=== PATIENT | female | born 1965 | race Caucasian/White ===

== ENCOUNTER 2023-09-28 22:10 | Inpatient (IN) | payer MEDICARE, SELFPAY ==
[2023-09-28 22:15] VITALS: BP 144/103; PULSE 101; RESP 18; TEMP 36.8; O2SAT 96; BMI 35.9
--- NOTE | 2023-09-28 22:18 | PC.NURSE ---
patient arrived to floor via [facility] transfer @22:14
--- NOTE | 2023-09-28 22:36 | ECG_ITS ---
APPROVED REPORT Exam: Resting ECG HR:101 bpm ECG Measurements Heart Rate 101 AXES UT 123 P 34 QRSd 99 QRS 53 QT 362 T 30 QTc 420 Conclusion SINUS TACHYCARDIA MODERATE ST DEPRESSION [0.05+ mV ST DEPRESSION] ABNORMAL ECG UNCONFIRMED REPORT Electronically signed by : Len Garza MD 09/30/2023 08:47:56
[2023-09-28 22:40] VITALS: PULSE 120
--- NOTE | 2023-09-28 22:40 | XR_ITS ---
PROCEDURE INFORMATION: Exam: XR Chest Exam date and time: 09/28/2023 10:51 PM Age: 58 years old Clinical indication: Shortness of breath TECHNIQUE: Imaging protocol: Radiologic exam of the chest. Views: 1 view. COMPARISON: No relevant prior studies available. FINDINGS: Lungs: Small calcified nodule in the left lung base compatible with granuloma. Lung lovelace otherwise clear. Pleural spaces: Unremarkable. No pleural effusion. No pneumothorax. Heart/Mediastinum: Heart size within normal limits allowing for low lung volume portable technique. Bones/joints: Unremarkable. IMPRESSION: No acute disease.
--- NOTE | 2023-09-28 23:01 | P.HP_ITS ---
History of Present Illness *Admission Date: 09/28/23 *Reason for visit:: NSTEMI *History of present illness: This is a 58-year-old female with a past medical history of alcoholism and prior CVA, medically noncompliant who presents as a transfer from [facility] for further evaluation of NSTEMI. Patient reports several months worth of generalized weakness and states that it has caused her to be unable to walk. States this is not mechanical but states that when she gets up to walk she feels generally weak and falls to the floor. Does have a history of robust alcoholism which she adamantly admits to. States that she is not willing to get help and that she will not quit drinking. Had a recent history of CVA in January for which she has mild deficits from. States that she has not seen a doctor in some time, has not followed up after her stroke. Does not take any medications and states that the medication she was given after her CVA she did not take. She presented department today with complaints of generalized weakness and anxiety denies chest pain, shortness of breath. She does endorse a prior history of CHF exacerbation at [place] in 2018 but also has not followed up for this. Emergency department workup at the outside hospital notable for troponin of [address] depression in lead I, II and III. Mildly elevated AST and ALT. Dr. Hodges was consulted prior to arrival and agrees with admission here. She currently is chest pain-free. States that she has never had any chest pain and has not been overtly short of breath either. During conversation with her she is more concerned with her extreme anxiety than her cardiac workup. Have now been told by 4 different family members that patient is alcoholic and needs something for her nerves. [facility] Disclaimer: The information contained in this section may have been updated after the patient was seen, as this information can be updated by other users. Medical History (Updated 09/29/23 @ 11:22 by Ana Olivera APRN) (HFpEF) heart failure with preserved ejection fraction NSTEMI (non-ST elevated myocardial infarction) Generalized weakness Alcoholism History of CVA (cerebrovascular accident) Transaminitis Obesity Medical non-compliance Sinus tachycardia Iron deficiency COPD (chronic obstructive pulmonary disease) CVA (cerebral vascular accident) Congestive heart failure (CHF) Surgical History (Updated 09/29/23 @ 11:22 by Ana Olivera APRN) History of gastric bypass Gastric bypass status for obesity Family History (Updated 09/28/23 @ 22:45 by Leticia Cano, RN) Other Family history of cancer Family history of heart disease Family history of stroke Social History (Updated 09/28/23 @ 22:45 by Leticia Cano, RN) Smoking Status: Current every day smoker alcohol intake: current current occupational status: other Travel in the last 8 weeks: None Review of Systems Review of Systems Review of systems (narrative): Review of systems negative except for HPI Meds Home Medications and Allergies Home Medications ?Medication ?Instructions ?Recorded ?Confirmed ?Type No Known Home Medications 09/29/23 09/29/23 History New Prescriptions to Start Prescriptions: Allergies Allergy/AdvReac Type Severity Reaction Status Date / Time No Known Allergies Allergy Verified 09/28/23 22:25 Exam Data for Last 24 hours Vital signs and Labs for Last 24 Hours: Temp Pulse Resp BP Pulse Ox O2 Del Method 98.3 F 101 H 18 144/103 H 96 Room Air 09/28/23 22:15 09/28/23 22:15 09/28/23 22:15 09/28/23 22:15 09/28/23 22:15 09/28/23 22:15 I & O for Last 24 hours: Intake & Output 09/25/23 09/26/23 09/27/23 09/28/23 23:59 23:59 23:59 23:59 Weight 97.885 kg Constitutional Constitutional: no acute distress *Routine HEENT Exam Head: Present normocephalic Eye: Present EOMI and PERRL ENT: Present mucous membranes moist *Routine Neck Exam Neck: Present supple; Absent lymphadenopathy *Routine Respiratory Exam Respiratory: Present CTA bilaterally *Routine Cardiovascular Exam Cardiovascular: Present RRR *Routine Abdominal Exam Abdominal: Present soft and normoactive bowel sounds; Absent tenderness *Routine Rectal Exam Rectal:: deferred *Routine Genitalia Exam Genitalia:: deferred *Routine Extremities Exam Extremities: Absent cyanosis, clubbing or edema *Routine Skin Exam Skin: Present warm; Absent rash *Routine Neurological Exam Neurological: Present alert and oriented X3 Assessment and Plan *Assessment and plan (1) NSTEMI (non-ST elevated myocardial infarction): Status: Acute Category: Medical Code(s): I21.4 - Non-ST elevation (NSTEMI) myocardial infarction (2) Generalized weakness: Status: Acute Category: Medical Code(s): R53.1 - Weakness (3) Alcoholism: Status: Acute Category: Medical Code(s): F10.20 - Alcohol dependence, uncomplicated (4) History of CVA (cerebrovascular accident): Status: Acute Category: Medical Code(s): Z86.73 - Personal history of transient ischemic attack (TIA), and cerebral infarction without residual deficits (5) Transaminitis: Status: Acute Category: Medical Code(s): R74.01 - Elevation of levels of liver transaminase levels (6) Obesity: Status: Acute Qualifiers: Obesity classification: adult class 3 (BMI >= 40) Category: Medical Code(s): E66.9 - Obesity, unspecified (7) Medical non-compliance: Status: Acute Category: Medical Code(s): Z91.199 - Patient's noncompliance with other medical treatment and regimen due to unspecified reason Plan #NSTEMI Cardiology consulted, christiano Hodges recommendations initial high-sensitivity troponin outside hospital 288 EKG with T wave inversions in lead I to III Trend tropinins Nitro for chest pain EKG for worsenign or new chest pain Continue ASA daily Initiate statin #Medical noncompliance Reports that she does not take any medicines because she refused to take them after her stroke. Does not have any close follow-up, states that she does not have a PCP #Alcoholism #Transaminitis Reports 6-8 beers daily for the last 40 years as well as some whiskey intake intermittently Will schedule Serax and gabapentin to attempt to avoid withdrawal CIWA protocol with multivitamins and Ativan #History of CVA No residual deficits at this time except for mild speech impediment #Generalized weakness Has good strength bilaterally with plantar and dorsi flexion and hip flexion Reports that she can walk but is too weak to walk very far Lumbar CT performed at outside hospital,signs of cauda equina Obtain urinalysis to rule out infection as source of generalized weakness #Obesity Complicates all aspects of care
[2023-09-28] MEDS: OXAZEPAM 10 MG CAPSULE PO (23:41)
[2023-09-28] MEDS: 0.9 % SODIUM CHLORIDE 1000ML 1,000 ML 50 ML IV (23:52)
[2023-09-29] VITALS (8 sets, daily range): BP systolic 107–124; BP diastolic 56–76; PULSE 77–119; RESP 17–20; TEMP 36.4–37.7; O2SAT 95–100; BMI 35.9
[2023-09-29 00:02] LABS: Basophils % 0.6 % (0.1-2.0); Eosinophils % 0.2 % (0.1-12.0); Hematocrit 31.9 % (37.0-47.0); Hemoglobin 9.7 g/dL (12.2-16.2); Lymphocytes # 1.2 K/mm3 (0.7-4.5); Lymphocytes % 19.2 % (10-50); Mean Corpuscular HGB Conc 30.4 g/dL (31.8-35.4); Monocytes # 0.4 K/mm3 (0.1-1.0); Monocytes % 5.7 % (1.7-9.3); Neutrophils # 4.8 K/mm3 (1.8-7.8); Neutrophils % 74.3 % (37.0-80.0); Platelet Count 137 K/mm3 (142-424); Red Blood Count 3.59 M/mm3 (4.20-5.40); White Blood Count 6.5 K/mm3 (4.8-10.8)
[2023-09-29 00:15] LABS: Alanine Aminotransferase 92 U/L (12-78); Albumin Level 3.8 g/dl (3.5-5.0); Albumin/Globulin Ratio 1.3 (1.1-1.8); Alkaline Phosphatase 89 U/L (38-126); Anion Gap 19.2 mEq/L (5-15); Aspartate Amino Transferase 201 U/L (14-36); Bilirubin,Total 0.8 mg/dl (0.2-1.3); Blood Urea Nitrogen 5 mg/dl (7-17); Calcium 8.7 mg/dl (8.4-10.2); Carbon Dioxide 15 mmol/L (22.0-30.0); Chloride 101 mmol/L (98-107); Creatinine Clearance Estimated 185 mL/min (50-200); Estimated Glomerular Filt Rate 126 ml/min (>60); GFR (African American) 152 ML/MIN (>60); Glucose 145 mg/dl (74-100); Potassium 4.2 mmoL/L (3.5-5.1); Sodium 131 mmol/L (136-145); Total Protein,Serum 6.8 g/dl (6.3-8.2)
[2023-09-29 00:17] LABS: Activated Partial Thrombo Time 26.3 seconds (22.8-30.6); Cholesterol 200 mg/dl (140-200); INR 0.91 (0.9-1.1); Magnesium 1.6 mg/dl (1.6-2.3); Prothrombin Time 10.3 seconds (10.1-12.5); Triglycerides 75 mg/dl (30-150); VLDL Cholesterol 15 mg/dL (0-40)
[2023-09-29 00:24] LABS: NT Pro Brain Natriuretic Pep. 663 pg/mL (0-125)
[2023-09-29 00:27] LABS: Direct LDL Cholesterol 44.33 mg/dL (100-129)
[2023-09-29 00:29] LABS: Chol/HDL Ratio 1.6 (1-3.5); HDL Cholesterol 127 mg/dl (40-60)
[2023-09-29] MEDS: LORazepam 1MG TABLET 1 MG PO ×3 (01:36→18:23)
[2023-09-29 01:51] LABS: Hemoglobin A1C 4.3 % (4.0-6.0)
[2023-09-29 02:11] LABS: Troponin I 0.04 ng/ml (0.00-0.034)
[2023-09-29 05:52] LABS: Basophils % 0.6 % (0.1-2.0); Eosinophils % 0.6 % (0.1-12.0); Hematocrit 28.1 % (37.0-47.0); Lymphocytes # 1.5 K/mm3 (0.7-4.5); Mean Corpuscular HGB Conc 30.9 g/dL (31.8-35.4); Mean Corpuscular Hemoglobin 27.5 pg (27.0-31.2); Mean Platelet Volume 8.5 fl (7.4-10.4); Monocytes # 0.3 K/mm3 (0.1-1.0); Monocytes % 7.1 % (1.7-9.3); Neutrophils # 2.3 K/mm3 (1.8-7.8); Neutrophils % 55.7 % (37.0-80.0); Platelet Count 126 K/mm3 (142-424); Red Blood Count 3.16 M/mm3 (4.20-5.40); Red Cell Distribution Width 24.5 % (11.5-17.5); White Blood Count 4.2 K/mm3 (4.8-10.8)
[2023-09-29 05:57] LABS: Chloride 103 mmol/L (98-107); Potassium 4.2 mmoL/L (3.5-5.1); Sodium 131 mmol/L (136-145)
[2023-09-29 05:58] LABS: Hemoglobin 8.7 g/dL (12.2-16.2)
[2023-09-29 06:00] LABS: Anion Gap 11.2 mEq/L (5-15); Blood Urea Nitrogen 8 mg/dl (7-17); Calcium 8.1 mg/dl (8.4-10.2); Carbon Dioxide 21 mmol/L (22.0-30.0); Creatinine Clearance Estimated 185 mL/min (50-200); Estimated Glomerular Filt Rate 126 ml/min (>60); GFR (African American) 152 ML/MIN (>60); Glucose 90 mg/dl (74-100)
[2023-09-29 06:11] LABS: Troponin I 0.05 ng/ml (0.00-0.034)
--- NOTE | 2023-09-29 08:22 | HMH.PTEV ---
Physical Therapy Evaluation Rehab PT IP Evaluation Start: 09/28/23 22:38 Freq: ONCE Status: Active Protocol: Document 09/29/23 08:11 TYRA (Rec: 09/29/23 08:22 TYRA [id number]) Subjective/History History History Per H&P: This is a 58-year- old female with a past medical history of alcoholism and prior CVA, medically noncompliant who presents as a transfer from [facility] for further evaluation of NSTEMI. Patient reports several months worth of generalized weakness and states that it has caused her to be unable to walk. States this is not mechanical but states that when she gets up to walk she feels generally weak and falls to the floor. Does have a history of robust alcoholism which she adamantly admits to. States that she is not willing to get help and that she will not quit drinking. Had a recent history of CVA in January for which she has mild deficits from. States that she has not seen a doctor in some time, has not followed up after her stroke. Does not take any medications and states that the medication she was given after her CVA she did not take . She presented department today with complaints of generalized weakness and anxiety denies chest pain, shortness of breath. She does endorse a prior history of CHF exacerbation at [place] in 2018 but also has not followed up for this. Subjective Subjective Pt reports she lives alone in a single-story home with 3 MARIELY with HRs. Pt reports being IND with all mobility. Pt owns a SPC and RW but reports those don't help . Pt reports increased fatigue levels and weakness that has led to a few falls. Pt also verbalized a FOF. Pt does not drive anymore . Pt has family that lives near by that bring her food and intermittently check in on her. Pt reports her daughter may be able to stay a few days with her upon d/c home. Rehab PT IP Eval Objective Appearance Patient Behavior Appropriate,Cooperative Patient Orientation Person,Situation Difficulty following instructions none Speech Pattern Clear Ambulation Patient Able to Ambulate Yes Ambulation Observation IP General Gait Pattern Observation Wide Based Gait Ambulation Distance (feet) 25 Ambulation Assistive Device Rolling Walker Ambulation Ability Contact Guard/Hand Hold Balance Ability to Arise Able, w/o using arms Sitting Balance Steady, safe Standing Balance Steady, wide stance Transfers Bed Transfer Ability Supervision/Stand by Sit to Stand Bed Transfer Ability Supervision/Stand by Rehab PT IP prob,goals,plan Problems Date of Evaluation: 09/29/23 PT IP Problems Transfers,Gait,Balance,Safety Rehab Potential Rehab Potential Good Plan PT Intervention Plan Transfers,Gait,Balance,Safety, Therapeutic Exercise Other Intervention Plan 1-2 times PT Plan Frequency Daily Duration LOS Discharge Goals Bed Transfer Ability Independent Sit to Stand Chair Transfer Ability Independent Ambulation Assistive Device Rolling Walker Ambulation Distance (feet) 100 Discharge Plan PT Discharge Plan Initial physical therapy evaluation performed. Patient presents below baseline at this time in functional mobility, transfers, gait, and strength. Pt demo'd ambulation from the bed to the door with SUP/CGA and RW. When pt came close to returning to the bed, pt verbalized fear of falling and ambulated quickly (not safely ) and sat with poor placement and control on bed. Pt would benefit from skilled PT while at [facility] to prevent further functional decline and maximize safety with mobility. Pt safe to d/c home when deemed medically necessary d/t current level of mobility, home set-up, and family support. PT recommending home health PT services to address deficits. However, if pt's mobility worsens or she continues to demo bouts of impaired safety awareness while at [facility], PT recommending family stay with pt upon d/c or may benefit from skilled rehab. Eval Complexity Eval Charge Codes 80104 - Moderate Complexity PHYSICIAN CERTIFICATION: I certify the specified therapy services for Nela Grullon are required, authorized, and reviewed every 30 days.
[2023-09-29] MEDS: ASPIRIN 81MG CHEWABLE TABLET 81 MG PO (08:54)
[2023-09-29] MEDS: FOLIC ACID 1MG TABLET 1 MG PO (08:54)
[2023-09-29] MEDS: GABAPENTIN 100MG CAPSULE 200 MG PO ×3 (08:54→21:28)
[2023-09-29] MEDS: THIAMINE 100MG TABLET 100 MG PO (08:54)
[2023-09-29] MEDS: ENOXAPARIN 40MG/0.4ML SYRINGE 40 MG SQ (08:55)
[2023-09-29] MEDS: OXAZEPAM 10 MG CAPSULE PO ×2 (09:04→21:29)
--- NOTE | 2023-09-29 09:39 | CA_ITS ---
APPROVED REPORT EXAM: Comprehensive 2D, Doppler, and color-flow Echocardiogram [place] Worker: Arianna Mcduffie RT(R) Ht: 5 ft 6 in Wt: 215lbs BSA: 2.06 BP: 144/103 mmHg Indications: NSTEMI, COPD, smoker, hx of alcoholism, hx CVA, CHF, medically noncompliant, hx gastric bypass 2D Dimensions Left Atrium 2.17 cm F: 2.7 - 3.8 LVEF (Huang's) 62.30 % F: 54 - 74 LVOT 2.04 cm (M/F) 1.5-2.5 LV Volume 71.30 mL F: 46 - 106 LV Volume Index 34.6 mL/m2 F: 29 - 61 LA Volume 44.70 mL LA Volume Index 21.70 mL/m2 (M/F) 16-34 EF AP4 61.80 % EF AP2 64.3 % EF BP 62.3 % GL Strain -22.9 % M-Mode Dimensions RVDd 2.43 cm (0.9-2.6) LVDd 5.51 cm (3.5-5.7) Ao Diam 3.09 cm (2.0-3.7) LVDs 4.29 cm (3.5-5.7) IVSd 0.91 cm (0.6-1.1) PWd 0.99 cm (0.6-1.1) EF (Teich) 44.20% FS 22.10% EDV (Teich) 148.00 mL ESV (Teich) 82.60 mL LV Diastology E Decel Time 194 (160-240 msec) E/A Ratio 0.5 MED E' 7.3 (>= 7 cm/sec) E'/MED E' Ratio 6.15 (<= 14) LAT E' 10.3 (>= 10 cm/sec) E/LAT E' Ratio 4.36 (<= 14) Mitral Valve MV E Max Andrey. 45.0 (40-130 cm/s) MV A Velocity 84.0 (40-130 cm/s) E/A Ratio 0.54 MV Decel. Time 194 (160-240 ms) Left Ventricle The left ventricle is normal size. The left ventricular systolic function is normal. The left ventricular ejection fraction is within the normal range. There is increased LV wall thickness. There is normal LV segmental wall motion. The left ventricular diastolic function is normal. LVEF is 60%. Right Ventricle The RV is not well visualized, but appears at least mildly dilated and at least mildly hypokinetic. Atria The left atrium size is normal. The right atrium size is normal. There is no Doppler evidence of interatrial shunt. Aortic Valve The aortic valve opens well. There is no aortic valvular stenosis. No aortic regurgitation is present. Mitral Valve The mitral valve is normal in structure. No evidence of mitral valve stenosis. There is no mitral valve regurgitation noted. Tricuspid Valve Tricuspid valve is grossly normal in structure and function. Trace tricuspid regurgitation. There is insufficient TR jet to estimate RVSP. Pulmonic Valve The pulmonary valve is normal in structure. Trace pulmonic regurgitation. Great Vessels The aortic root is normal in size. The ascending aorta is normal in size. IVC is normal in size and collapses >50% with inspiration. Pericardium There is no pericardial effusion. Other Information Study Quality: Technically Difficult Conclusion Normal LV systolic function. Normal regional wall motion. The RV is not well visualized, but appears at least mildly dilated and at least mildly hypokinetic. No significant valvular stenosis or regurgitation. Electronically signed by : Sangeeta Velásquez MD 10/01/2023 17:56:15
--- NOTE | 2023-09-29 10:12 | HMH.OTEV ---
OT Inpatient Evaluation Rehab OT IP Evaluation Start: 09/29/23 08:08 Freq: ONCE Status: Active Protocol: Document 09/29/23 09:59 KMMELVIN (Rec: 09/29/23 10:12 BRUNO [id number]) Rehab OT IP Assessment Subjective History This is a 58-year-old female with a past medical history of alcoholism and prior CVA, medically noncompliant who presents as a transfer from [facility] for further evaluation of NSTEMI. Patient reports several months worth of generalized weakness and states that it has caused her to be unable to walk. States this is not mechanical but states that when she gets up to walk she feels generally weak and falls to the floor. Does have a history of robust alcoholism which she adamantly admits to. States that she is not willing to get help and that she will not quit drinking. Had a recent history of CVA in January for which she has mild deficits from. States that she has not seen a doctor in some time, has not followed up after her stroke. Does not take any medications and states that the medication she was given after her CVA she did not take . She presented department today with complaints of generalized weakness and anxiety denies chest pain, shortness of breath. She does endorse a prior history of CHF exacerbation at [place] in 2018 but also has not followed up for this. Emergency department workup at the outside hospital notable for troponin of [address] depression in lead I, II and III. Mildly elevated AST and ALT. Dr. Hodges was consulted prior to arrival and agrees with admission here. She currently is chest pain- free. States that she has never had any chest pain and has not been overtly short of breath either. During conversation with her she is more concerned with her extreme anxiety than her cardiac workup. Have now been told by 4 different family members that patient is alcoholic and needs something for her nerves. I don't get up much. Subjective Patient lives alone in 1 story home with 1 MARIELY. Patient reported that lays in the bed mostly with family that provides her food and drinks. Patient's baseline mobility is minimal at home even though her transfers are CGA. Patient able to sit @ EOB independently. Patient prefers to be her brief for toileting and was incontinet during inital evaluation. OT consulted with patient if there is a BSC or if she ambulates to restroom at home. Patient stated, I just go in my diaper and I will clean it up later. Patient completed transfers and steps with CGA for safety. No LOB noted. Patient stated to have a RW at home but will rarely use it. Hx of falling at home. Objective Patient Orientation Person,Place,Age,Birthday,Year Right Upper Extremity Gross ROM WFL Left Upper Extremity Gross ROM WFL Bed Mobility bed mobility - supine/sit Assist Level Independent Transfer Training Sit/Stand/Step Transfer Assist Level Contact Guard/Hand Hold Chair Transfer Ability Contact Guard/Hand Hold Chair Transfer Technique Sit to/from Ambulatory Rehab OT IP prob,goals,plan Problems Date of Evaluation: 09/29/23 OT IP Problems Bed Mobility,Transfers,Balance ,Self care,Safety Rehab Potential Rehab Potential Good Equipment Needs Assistive Devices Rolling / Wheeled Walker Plan OT intervention Plan Bed Mobility,Transfers,Balance ,Self care,Safety,Therapeutic Exercise OT Plan Frequency Daily Duration LOS Discharge Goals Sit to Stand Chair Transfer Ability Supervision/Stand by Chair Transfer Ability Supervision/Stand by Chair Transfer Technique Sit to/from Ambulatory Discharge Plan OT Discharge Plan Recommend Patient to return back home with assistance from family. Patient to continue skilled OT services while here at [facility]. Eval Complexity Eval Charge Codes 49773 - Low Complexity PHYSICIAN CERTIFICATION: I certify the specified therapy services for Nela Grullon are required, authorized, and reviewed every 30 days.
[2023-09-29 10:26] LABS: Reticulocyte % (Auto) 2.2 % (0.9-3.2)
[2023-09-29 11:06] LABS: Iron 76 ug/dL (37-170)
[2023-09-29 11:15] LABS: Total Iron Binding Capacity 310 ug/dL (265-497)
--- NOTE | 2023-09-29 11:17 | P.CONCA_ITS ---
History of Present Illness History of Present Illness Consult date: 09/29/23 Requesting physician: Dk Lawrence Chief complaint: anxiety and weakness History of present illness: This is a 58-year-old female who presented to the emergency department initially at [facility] for anxiety and weakness. The patient has a past medical history of alcoholism, CVA, CHF and gastric bypass. While at [facility] she was found to have a positive high-sensitivity troponin so she was transferred here to [facility]. The patient states that she has been very weak for the last several months and has been having to use a walker to even ambulate. She states that she has just felt very anxious the last several days and it got really severe and she went to the emergency department at [facility]. She denies any chest pain or pressure. She denies any shortness of breath or edema. She denies any fever, chills, nausea, vomiting, diarrhea, PND or orthopnea. The patient does have a history of significant alcohol use. She states that she drinks 6-8 beers a day plus whiskey. Her daughter reports that she drinks more than that in a day, but she is not exactly sure exactly how much she is drinking. She smokes 2 packs or more of cigarettes per day as well. The patient reports that she had a CVA in January and was supposed be on medications for this but is currently not taking any medications at all. She states that she had an exacerbation of CHF back in 2018 and she is presently on medications for that as well but she does not currently take those medicines. While at [facility] she had an abnormal EKG with her elevated troponin and was transferred here. Her troponin here at [facility] was also slightly elevated with a troponin of 0.04 and a troponin of 0.05. Her EKG is abnormal. She remains chest pain-free. [facility] Disclaimer: The information contained in this section may have been updated after the patient was seen, as this information can be updated by other users. Medical History (Updated 09/29/23 @ 11:22 by Ana Olivera APRN) (HFpEF) heart failure with preserved ejection fraction NSTEMI (non-ST elevated myocardial infarction) Generalized weakness Alcoholism History of CVA (cerebrovascular accident) Transaminitis Obesity Medical non-compliance Sinus tachycardia Iron deficiency COPD (chronic obstructive pulmonary disease) CVA (cerebral vascular accident) Congestive heart failure (CHF) Surgical History (Updated 09/29/23 @ 11:22 by Ana Olivera APRN) History of gastric bypass Gastric bypass status for obesity Family History (Updated 09/28/23 @ 22:45 by Leticia Cano, RN) Other Family history of cancer Family history of heart disease Family history of stroke Social History (Updated 09/28/23 @ 22:45 by Leticia Cano RN) Smoking Status: Current every day smoker alcohol intake: current current occupational status: other Travel in the last 8 weeks: None Review of Systems Review of Systems Review of systems:: pertinent systems reviewed and negative unless documented below Constitutional Constitutional: Reports system reviewed and no additional complaints, except as documented, Reports fatigue, Reports lethargy and Reports weakness Eyes Eyes: Reports system reviewed and no additional complaints, except as documented ENT Ears, Nose, Mouth, and Throat: Reports system reviewed and no additional complaints, except as documented *Cardiovascular Cardiovascular: Reports system reviewed and no additional complaints, except as documented, Denies chest pain and Denies dyspnea *Respiratory Respiratory: Reports system reviewed and no additional complaints, except as documented and Denies dyspnea *Gastrointestinal Gastrointestinal: Reports system reviewed and no additional complaints, except as documented *Genitourinary Genitourinary: Reports system reviewed and no additional complaints, except as documented *Musculoskeletal Musculoskeletal: Reports system reviewed and no additional complaints, except as documented Integumentary/Breasts Skin/Breast: Reports system reviewed and no additional complaints, except as documented *Neurologic Neurologic: Reports system reviewed and no additional complaints, except as documented, Reports localized weakness and Reports weakness Psychiatric Psychiatric: Reports system reviewed and no additional complaints, except as documented and Reports anxiety Endocrine Endocrine: Reports system reviewed and no additional complaints, except as documented and Reports fatigue Hematologic/Lymphatic Hematologic/Lymphatic: Reports system reviewed and no additional complaints, except as documented Allergic/Immunologic Allergic/Immunologic: Reports system reviewed and no additional complaints, except as documented Exam Data for Last 24 hours Vital signs and Labs for Last 24 Hours: Temp Pulse Resp BP Pulse Ox O2 Del Method 97.6 F 99 H 18 116/74 97 Room Air 09/29/23 08:00 09/29/23 08:00 09/29/23 08:00 09/29/23 08:00 09/29/23 08:00 09/29/23 10:30 Laboratory Results - last 24 hr 09/28/23 23:48: WBC 6.5, RBC 3.59 L, Hgb 9.7 L, Hct 31.9 L, MCV 89.0, MCH 27.0, MCHC 30.4 L, RDW 24.0 H, Plt Count 137 L, MPV 10.0, Neut % (Auto) 74.3, Lymph % (Auto) 19.2, [place] % (Auto) 5.7, Eos % (Auto) 0.2, Baso % (Auto) 0.6, Neut # (Auto) 4.8, Lymph # (Auto) 1.2, [place] # (Auto) 0.4, Eos # (Auto) 0.0, Baso # (Auto) 0.0, PT 10.3, INR 0.91, APTT 26.3, Sodium 131 L, Potassium 4.2, Chloride 101, Carbon Dioxide 15 L, Anion Gap 19.2 H, BUN 5 L, Creatinine 0.50 L, Estimated Creat Clear 185, Estimated GFR 126, Est GFR ( Amer) 152, Glucose 145 H, Hemoglobin A1c 4.3, Calcium 8.7, Magnesium 1.6, Total Bilirubin 0.8, AST 201 H, ALT 92 H, Alkaline Phosphatase 89, NT-Pro-B Natriuret Pep 663 H, Total Protein 6.8, Albumin 3.8, Globulin 3.0, Albumin/Globulin Ratio 1.3, Triglycerides 75, Cholesterol 200, LDL Cholesterol Direct 44.33 L, VLDL Cholesterol 15, HDL Cholesterol 127 H, Cholesterol/HDL Ratio 1.6 09/29/23 00:00: Troponin I 0.04 H 09/29/23 05:19: WBC 4.2 L D, RBC 3.16 L, Hgb 8.7 L D, Hct 28.1 L, MCV 89.0, MCH 27.5, MCHC 30.9 L, RDW 24.5 H, Plt Count 126 L, MPV 8.5, Neut % (Auto) 55.7, Lymph % (Auto) 36.0, [place] % (Auto) 7.1, Eos % (Auto) 0.6, Baso % (Auto) 0.6, Neut # (Auto) 2.3, Lymph # (Auto) 1.5, [place] # (Auto) 0.3, Eos # (Auto) 0.0, Baso # (Auto) 0.0, Retic Count (auto) 2.2, Sodium 131 L, Potassium 4.2, Chloride 103, Carbon Dioxide 21 L, Anion Gap 11.2, BUN 8 D, Creatinine 0.50 L, Estimated Creat Clear 185, Estimated GFR 126, Est GFR ( Amer) 152, Glucose 90 D, Calcium 8.1 L, Iron 76, Troponin I 0.05 H I & O for Last 24 hours: Intake & Output 09/26/23 09/27/23 09/28/23 09/29/23 23:59 23:59 23:59 23:59 Output Total 0 / 0 Balance 0 / 0 Weight 215 lb 12.8 oz 215 lb 12.792 oz Constitutional Constitutional: no acute distress and average body habitus *Routine HEENT Exam Head: Present normocephalic and atraumatic ENT: Present mucous membranes moist *Routine Neck Exam Neck: Present supple, full ROM and normal carotid upstroke; Absent JVD, carotid bruit or lymphadenopathy *Routine Respiratory Exam Respiratory: Present CTA bilaterally, normal respiratory effort, able to speak in complete sentences and symmetric chest movement *Routine Cardiovascular Exam Cardiovascular: Present RRR, Normal S1, Normal S2 and tachycardia; Absent murmur or gallop *Routine Abdominal Exam Abdominal: Present soft and normoactive bowel sounds; Absent tenderness, distended or organomegaly *Routine Extremities Exam Extremities: Present full ROM, pulses intact and normal capillary refill; Absent cyanosis, clubbing or edema *Routine Skin Exam Skin: Present intact and warm; Absent erythema *Routine Neurological Exam Neurological: Present alert, oriented X3 and CN II-XII intact; Absent sensory de ficit or motor deficit Routine Psychiatric Exam Psychiatric: Present normal affect Meds Home Medications and Allergies Home Medications ?Medication ?Instructions ?Recorded ?Confirmed ?Type No Known Home Medications 09/29/23 09/29/23 History New Prescriptions to Start Prescriptions: Allergies Allergy/AdvReac Type Severity Reaction Status Date / Time No Known Allergies Allergy Verified 09/28/23 22:25 Assessment and Plan *Assessment and plan (1) NSTEMI (non-ST elevated myocardial infarction): Status: Acute Category: Medical Code(s): I21.4 - Non-ST elevation (NSTEMI) myocardial infarction (2) (HFpEF) heart failure with preserved ejection fraction: Status: Acute Qualifiers: Heart failure chronicity: acute on chronic Qualified Code(s): I50.33 - Acute on chronic diastolic (congestive) heart failure Category: Medical Code(s): I50.30 - Unspecified diastolic (congestive) heart failure (3) Iron deficiency: Status: Acute Category: Medical Code(s): E61.1 - Iron deficiency (4) Generalized weakness: Status: Acute Category: Medical Code(s): R53.1 - Weakness (5) Alcoholism: Status: Acute Category: Medical Code(s): F10.20 - Alcohol dependence, uncomplicated (6) History of CVA (cerebrovascular accident): Status: Acute Category: Medical Code(s): Z86.73 - Personal history of transient ischemic attack (TIA), and cerebral infarction without residual deficits (7) Transaminitis: Status: Acute Category: Medical Code(s): R74.01 - Elevation of levels of liver transaminase levels (8) Obesity: Status: Acute Qualifiers: Body mass index: BMI 36.0-36.9 Obesity classification: adult class 2 (BMI 35 - 39.9) Obesity type: due to excess calories Serious obesity comorbidity presence: without serious comorbidity Qualified Code(s): E66.09 - Other obesity due to excess calories; Z68.36 - Body mass index [BMI] 36.0-36.9, adult Category: Medical Code(s): E66.9 - Obesity, unspecified (9) Medical non-compliance: Status: Acute Category: Medical Code(s): Z91.199 - Patient's noncompliance with other medical treatment and regimen due to unspecified reason (10) Sinus tachycardia: Status: Acute Category: Medical Code(s): R00.0 - Tachycardia, unspecified (11) History of gastric bypass: Status: Acute Category: Surgical Code(s): Z98.84 - Bariatric surgery status Plan Plan: 1. The patient presented to the emergency department initially at [facility]. She had an elevated high-sensitivity troponin and abnormal EKG. She was transferred here to [facility]. She also had an elevated troponin here at [facility] with an abnormal EKG. She has been started on aspirin 81 mg daily and Lipitor 40 mg p.o. nightly. 2. This is most likely a type II non-STEMI from her profound iron deficiency anemia and alcoholism. The patient will likely need further ischemic evaluation in the future but given her profound anemia we will not plan to proceed with left cardiac catheterization at this time as long as her EF is normal and she has no wall motion abnormalities on echocardiogram.. Will need to further investigate her anemia first to make sure it is safe to proceed with left cardiac catheterization and possible dual antiplatelet therapy. 3. Will obtain iron studies, vitamin B12 and folic acid levels today. 4. The patient does have a history of gastric bypass surgery. She states that she is unable to ambulate because her legs just will not work and are significantly weak. She has been using a walker. This is highly suspicious that she has a vitamin B12 deficiency. Will obtain vitamin B12 levels today. If her vitamin B12 is deficient then she should get this an injection of vitamin B-12 while she is here in the hospital. 5. If she is iron deficient then we will do recommend IV iron prior to discharge. 6. The patient does suffer from alcoholism. We have had a long discussion with the patient about the most likely being the biggest cause for her admission. We have had a long discussion with her about abstaining from alcohol use. She initially stated that she was not interested in alcohol cessation. However, after our long discussion with her and the patient realizing that her anemia and most likely the profound weakness in her legs as a result of her alcohol use and that if she continues to consume large amounts of alcohol it will most certainly lead to worsening health issues and even . The patient is getting Ativan as needed for alcohol withdrawal. We will also send in Valium 10 mg p.o. 3 times daily #90 with no refills for her to use as an outpatient to help her wean off of her alcohol use. Dr. Hodges has had a long discussion with the patient about weaning off of the alcohol and she has verbalized understanding. 7. Will start the patient on Protonix 40 mg p.o. daily due to her alcoholism and recent black tarry stools. 8. She will need to be referred for colonoscopy on an outpatient basis secondary to her iron deficiency anemia. 9. No beta-meghan or CRISTIN inhibitor at this time due to her blood pressure being on the lower side. Her tachycardia is most likely from alcohol withdrawal. 10. Will obtain an echocardiogram to evaluate her LV function and look for any wall motion abnormalities. 11. Further recommendations will be made pending the patient's response to treatment and the results of her echocardiogram today. Thank you for the opportunity to help participate in the care of this patient. All recommendations and orders are per Dr. Hodges. Addendum: Preliminary echocardiogram was reviewed by Dr. Hodges. The patient has a normal ejection fraction and no significant wall motion abnormalities are noted. No plans for invasive left cardiac catheterization at this time until her iron deficiency anemia is further investigated. She will need left cardiac catheterization in the future. Recommend aspirin 81 mg daily, Lipitor 40 mg p.o. nightly and Valium 10 mg p.o. 3 times a day as needed for alcohol withdrawal once she is discharged from the hospital. Still awaiting iron studies, folate and vitamin B12 labs.
--- NOTE | 2023-09-29 11:30 | PC.NURSE ---
pt requested ativan during rounds, hospitalist agreed it was okay to give even if her CIWA showed no indication. no new orders at this time. call light within reach.
[2023-09-29 11:34] LABS: Vitamin B12 972 pg/mL (239-931)
[2023-09-29 11:43] LABS: Ferritin 35.4 ng/ml (11.1-264)
--- NOTE | 2023-09-29 15:20 | PC.NURSE ---
pt has remained a&ox4 this shift. pt's CIWA scale has not reached above 0 this shift. pt requested ativan this morning during rounds, hospitalist agreed it was okay to give even if her CIWA showed no indication. pt has remained on RA this shift. no new orders at this time. call light within reach. daughter at bedside.
--- NOTE | 2023-09-29 16:07 | EXP.ACUTE.PN ---
Subjective *Date: 09/29/23 *Time: 16:14 Interval history: In good spirits during evaluation by Dr. Lawrence. Eager for results of cardiology evaluation. Medical Exam Vital signs and Labs for Last 24 Hours: Vital Signs Temp Pulse Pulse Resp BP Pulse Ox O2 Del Method 09/29/23 14:35 Room Air 09/29/23 13:00 Room Air 09/29/23 12:17 100 H 09/29/23 12:00 99.4 F 77 20 107/56 L 100 Room Air 09/29/23 10:30 Room Air 09/29/23 09:00 Room Air 09/29/23 08:00 Room Air 09/29/23 08:00 100 H 09/29/23 08:00 97.6 F 99 H 18 116/74 97 Room Air 09/29/23 06:32 Room Air 09/29/23 05:00 Room Air 09/29/23 04:00 100 H 09/29/23 04:00 99.0 F 110 H 18 119/74 98 Room Air 09/29/23 03:00 Room Air 09/29/23 01:00 Room Air 09/29/23 00:11 119 H Room Air 09/29/23 00:00 98.0 F 119 H 20 121/59 L 99 Room Air 09/28/23 23:00 Room Air 09/28/23 22:40 120 H 09/28/23 22:15 98.3 F 101 H 18 144/103 H 96 Room Air Intake and Output 09/29/23 09/29/23 09/29/23 07:59 15:59 23:59 Intake Total 540 / 540 Output Total 0 / 0 0 / 0 Balance 0 / 540 540 / 540 Intake: Intake, Oral Amount 540 / 540 Output: Output, Urine Amount 0 / 0 0 / 0 Other: Number of Unmeasured Voids 1 1 Weight 97.885 kg Patient Weight 09/29/23 23:59 Weight 97.885 kg Laboratory Results - last 24 hr 09/28/23 23:48: WBC 6.5, RBC 3.59 L, Hgb 9.7 L, Hct 31.9 L, MCV 89.0, MCH 27.0, MCHC 30.4 L, RDW 24.0 H, Plt Count 137 L, MPV 10.0, Neut % (Auto) 74.3, Lymph % (Auto) 19.2, [place] % (Auto) 5.7, Eos % (Auto) 0.2, Baso % (Auto) 0.6, Neut # (Auto) 4.8, Lymph # (Auto) 1.2, [place] # (Auto) 0.4, Eos # (Auto) 0.0, Baso # (Auto) 0.0, PT 10.3, INR 0.91, APTT 26.3, Sodium 131 L, Potassium 4.2, Chloride 101, Carbon Dioxide 15 L, Anion Gap 19.2 H, BUN 5 L, Creatinine 0.50 L, Estimated Creat Clear 185, Estimated GFR 126, Est GFR ( Amer) 152, Glucose 145 H, Hemoglobin A1c 4.3, Calcium 8.7, Magnesium 1.6, Total Bilirubin 0.8, AST 201 H, ALT 92 H, Alkaline Phosphatase 89, NT-Pro-B Natriuret Pep 663 H, Total Protein 6.8, Albumin 3.8, Globulin 3.0, Albumin/Globulin Ratio 1.3, Triglycerides 75, Cholesterol 200, LDL Cholesterol Direct 44.33 L, VLDL Cholesterol 15, HDL Cholesterol 127 H, Cholesterol/HDL Ratio 1.6 09/29/23 00:00: Troponin I 0.04 H 09/29/23 05:19: WBC 4.2 L D, RBC 3.16 L, Hgb 8.7 L D, Hct 28.1 L, MCV 89.0, MCH 27.5, MCHC 30.9 L, RDW 24.5 H, Plt Count 126 L, MPV 8.5, Neut % (Auto) 55.7, Lymph % (Auto) 36.0, [place] % (Auto) 7.1, Eos % (Auto) 0.6, Baso % (Auto) 0.6, Neut # (Auto) 2.3, Lymph # (Auto) 1.5, [place] # (Auto) 0.3, Eos # (Auto) 0.0, Baso # (Auto) 0.0, Retic Count (auto) 2.2, Sodium 131 L, Potassium 4.2, Chloride 103, Carbon Dioxide 21 L, Anion Gap 11.2, BUN 8 D, Creatinine 0.50 L, Estimated Creat Clear 185, Estimated GFR 126, Est GFR ( Amer) 152, Glucose 90 D, Calcium 8.1 L, Iron 76, TIBC 310, Iron Saturation 24.15300, Ferritin 35.4, Troponin I 0.05 H, Vitamin B12 972 H, Folate 12.00 I & O for Labs for Last 24 Hours: Intake & Output 09/26/23 09/27/23 09/28/23 09/29/23 23:59 23:59 23:59 23:59 Intake Total 540 / 540 Output Total 0 / 0 Balance 540 / 540 Weight 97.885 kg 97.885 kg Radiology Reports for the Last 24 Hours: Ordering Physician: Felecia Reynolds Date of Service: 09/28/23 Procedure(s): XR chest portable Accession Number(s): [id number] cc: Mickey Mcginnis MD; Provider,Referral MD~ PROCEDURE INFORMATION: Exam: XR Chest Exam date and time: 09/28/2023 10:51 PM Age: 58 years old Clinical indication: Shortness of breath TECHNIQUE: Imaging protocol: Radiologic exam of the chest. Views: 1 view. COMPARISON: No relevant prior studies available. FINDINGS: Lungs: Small calcified nodule in the left lung base compatible with granuloma. Lung lovelace otherwise clear. Pleural spaces: Unremarkable. No pleural effusion. No pneumothorax. Heart/Mediastinum: Heart size within normal limits allowing for low lung volume portable technique. Bones/joints: Unremarkable. IMPRESSION: No acute disease. Constitutional: Present thin and chronically ill appearing Head: Present normocephalic ENT: Present normal oropharynx Neck: Present normal inspection and full ROM Respiratory: Present diminished air movement Cardiac: Present Reg Rate and Rhythm and Regular Rate GI: Present soft and diminished bowel sounds Rectal (female): Present deferred (female): Present deferred Extremities: Present normal inspection and full ROM Skin: Present intact and cyanosis Assessment and Plan *Assessment and plan (1) Iron deficiency: Status: Acute Category: Medical Code(s): E61.1 - Iron deficiency (2) Medical non-compliance: Status: Acute Category: Medical Code(s): Z91.199 - Patient's noncompliance with other medical treatment and regimen due to unspecified reason (3) Alcoholism: Status: Acute Category: Medical Code(s): F10.20 - Alcohol dependence, uncomplicated (4) Generalized weakness: Status: Acute Category: Medical Code(s): R53.1 - Weakness (5) NSTEMI (non-ST elevated myocardial infarction): Status: Acute Category: Medical Code(s): I21.4 - Non-ST elevation (NSTEMI) myocardial infarction Plan 58-year-old female patient with past medical history of iron deficiency anemia, medical noncompliance, CHF, CVA, heavy alcohol ingestion, gastric bypass. Patient presents with elevated high-sensitivity troponin from outside hospital, and currently be evaluated for non-STEMI. Cardiology consultation in progress. #NSTEMI ?09/28 appreciate cardiology assistance. Patient currently receiving anemia workup before initiation of possible dual antiplatelet therapy. Continue aspirin. Echocardiogram scheduled for today. Cardiology consultation ongoing. As needed nitro chest pain. Iron deficiency anemia: ? 09/28 patient has low iron stores. Will give 200 mg Venofer today. Will also consult general surgery to determine if patient appropriate for colonoscopy. ?09/28 reviewed B12/folate levels which appear normal. However, given patient's history of alcohol heavy ingestion will start daily B12/folate supplementation. #Medical noncompliance Reports that she does not take any medicines because she refused to take them after her stroke. Does not have any close follow-up, states that she does not have a PCP #Alcoholism #Transaminitis Reports 6-8 beers daily for the last 40 years as well as some whiskey intake intermittently Will schedule Serax and gabapentin to attempt to avoid withdrawal CIWA protocol with multivitamins and Ativan #History of CVA No residual deficits at this time except for mild speech impediment #Generalized weakness ?09/28 consult PT/OT for evaluation during hospitalization. Has good strength bilaterally with plantar and dorsi flexion and hip flexion Reports that she can walk but is too weak to walk very far Lumbar CT performed at outside hospital, no signs of cauda equina Obtain urinalysis to rule out infection as source of generalized weakness #Obesity Complicates all aspects of care Disposition: ? 09/28 depending on out, of cardiology evaluation. Will continue anemia workup, and will not discharge patient until cardiology/general surgery consult's agree with disposition plans.
[2023-09-29] MEDS: MULTIVITAMIN TABLET 1 EACH PO (16:42)
[2023-09-29] MEDS: IRON SUCROSE COMPLEX 200 MG in 0.9 % SODIUM CHLORIDE 100 ML 220 MG IV (16:42)
[2023-09-29] MEDS: ATORVASTATIN 40MG TABLET 40 MG PO (21:29)
[2023-09-29] MEDS: PANTOPRAZOLE 40MG TABLET 40 MG PO (21:29)
--- NOTE | 2023-09-29 21:39 | PC.NURSE ---
Khanh Mcdermott APRN notified re wxcoriated groins/folds/ periarea. to order nystatin powder.
[2023-09-29] MEDS: NYSTATIN TOPICAL POWDER 30GM 30 GM TP (21:52)
[2023-09-30] VITALS (7 sets, daily range): BP systolic 92–122; BP diastolic 56–77; PULSE 75–120; RESP 16–18; TEMP 36.6–36.9; O2SAT 94–100; BMI 35.4
[2023-09-30] MEDS: LORazepam 1MG TABLET 1 MG PO ×2 (00:07→06:49)
[2023-09-30] MEDS: 0.9 % SODIUM CHLORIDE 1000ML 1,000 ML 50 ML IV ×2 (02:39→21:14)
--- NOTE | 2023-09-30 04:00 | PC.NURSE ---
A/O x 3. No seizure activity noted. Side rails padded. CIWA score 0. Vital signs stable,afebrile. No c/o CP,SOA, Discomfort.02 sat 100 % on room air. Sinus Tachycardia/Sinus Rhythm noted on telemetry. Nystatin powder applied to excoriated abd folds/periarea.
[2023-09-30 07:32] LABS: Basophils % 0.7 % (0.1-2.0); Eosinophils # 0.1 K/mm3 (0.0-0.4); Eosinophils % 2.1 % (0.1-12.0); Hematocrit 28.8 % (37.0-47.0); Hemoglobin 8.8 g/dL (12.2-16.2); Lymphocytes # 1.3 K/mm3 (0.7-4.5); Lymphocytes % 39.7 % (10-50); Mean Corpuscular HGB Conc 30.4 g/dL (31.8-35.4); Mean Corpuscular Hemoglobin 27.5 pg (27.0-31.2); Mean Corpuscular Volume 90.5 fl (81-99); Mean Platelet Volume 9.4 fl (7.4-10.4); Monocytes # 0.2 K/mm3 (0.1-1.0); Monocytes % 7.5 % (1.7-9.3); Neutrophils # 1.6 K/mm3 (1.8-7.8); Neutrophils % 50.1 % (37.0-80.0); Platelet Count 131 K/mm3 (142-424); Red Blood Count 3.18 M/mm3 (4.20-5.40); Red Cell Distribution Width 24.6 % (11.5-17.5); White Blood Count 3.2 K/mm3 (4.8-10.8)
[2023-09-30 07:38] LABS: Chloride 108 mmol/L (98-107); Potassium 3.4 mmoL/L (3.5-5.1); Sodium 135 mmol/L (136-145)
[2023-09-30 07:41] LABS: Anion Gap 8.4 mEq/L (5-15); Blood Urea Nitrogen 12 mg/dl (7-17); Calcium 8.2 mg/dl (8.4-10.2); Carbon Dioxide 22 mmol/L (22.0-30.0); Creatinine Clearance Estimated 182 mL/min (50-200); Estimated Glomerular Filt Rate 126 ml/min (>60); GFR (African American) 152 ML/MIN (>60); Glucose 102 mg/dl (74-100)
[2023-09-30 07:42] LABS: Magnesium 1.7 mg/dl (1.6-2.3)
[2023-09-30] MEDS: OXAZEPAM 10 MG CAPSULE PO ×2 (10:19→21:11)
[2023-09-30] MEDS: NYSTATIN TOPICAL POWDER 30GM TP ×4 (10:19→21:10)
[2023-09-30] MEDS: GABAPENTIN 100MG CAPSULE 200 MG PO ×3 (10:19→21:11)
[2023-09-30] MEDS: THIAMINE 100MG TABLET 100 MG PO (10:19)
[2023-09-30] MEDS: FOLIC ACID 1MG TABLET 1 MG PO (10:19)
[2023-09-30] MEDS: ENOXAPARIN 40MG/0.4ML SYRINGE 40 MG SQ (10:19)
[2023-09-30] MEDS: ASPIRIN 81MG CHEWABLE TABLET 81 MG PO (10:19)
[2023-09-30 11:14] LABS: Transferrin 301 mg/dL (192-364)
--- NOTE | 2023-09-30 11:58 | P.CONS_ITS ---
History of Present Illness *Admission Date: 09/28/23 *History of present illness: Ms. Nela Munoz is a 58-year-old female with history of alcoholism and prior CVA, noted as medically noncompliant, transferred from [facility] on 09/28/2023 for evaluation of NSTEMI. At outside hospital, she had an elevated troponin of [address] depression. She currently does not have any chest pain. She complains of generalized weakness and inability to walk due to being too weak to stand. She has fallen twice. She has heavy alcohol intake, and stated to the hospitalist service that she is not willing to quit drinking. She does not regularly follow with primary care doctor, and did not follow-up with any doctors after her stroke in January. She has a history of open [place]-en-Y gastric bypass that she reports was done over 20 years ago in [facility]. She does not have any bariatric surgery follow- up. She takes B12 shots but has been out for a while. She smokes 2 packs/day. She denies regular use of NSAIDs or steroids. She has had dark stools for about a month. She denies abdominal pain, vomiting, dysphagia. Labs are notable for microcytic iron deficiency anemia. Iron and ferritin yesterday were both normal. B12 and folate levels were normal. She did receive an iron infusion yesterday. [facility] Disclaimer: The information contained in this section may have been updated after the patient was seen, as this information can be updated by other users. Medical History (Updated 09/30/23 @ 12:11 by Carmen Mcdermott MD) Melena Iron deficiency anemia (HFpEF) heart failure with preserved ejection fraction NSTEMI (non-ST elevated myocardial infarction) Generalized weakness Alcoholism History of CVA (cerebrovascular accident) Transaminitis Obesity Medical non-compliance Sinus tachycardia Iron deficiency COPD (chronic obstructive pulmonary disease) CVA (cerebral vascular accident) Congestive heart failure (CHF) Surgical History (Updated 09/29/23 @ 11:22 by Ana Olivera APRN) History of gastric bypass Gastric bypass status for obesity Family History (Updated 09/28/23 @ 22:45 by Leticia Cano RN) Other Family history of cancer Family history of heart disease Family history of stroke Social History (Updated 09/28/23 @ 22:45 by Leticia Jerome, RN) Smoking Status: Current every day smoker alcohol intake: current current occupational status: other Travel in the last 8 weeks: None Review of Systems Constitutional Constitutional: Reports frequent falls and Reports weakness Eyes Eyes: Reports system reviewed and no additional complaints, except as documented ENT Ears, Nose, Mouth, and Throat: Reports system reviewed and no additional complaints, except as documented *Cardiovascular Cardiovascular: Reports system reviewed and no additional complaints, except as documented *Respiratory Respiratory: Reports system reviewed and no additional complaints, except as documented *Gastrointestinal Gastrointestinal: Reports melena *Genitourinary Genitourinary: Reports system reviewed and no additional complaints, except as documented *Musculoskeletal Musculoskeletal: Reports muscle weakness Integumentary/Breasts Skin/Breast: Reports system reviewed and no additional complaints, except as documented *Neurologic Neurologic: Reports system reviewed and no additional complaints, except as documented, Reports localized weakness, Reports frequent falls and Reports weakness Psychiatric Psychiatric: Reports anxiety Endocrine Endocrine: Reports system reviewed and no additional complaints, except as documented Hematologic/Lymphatic Hematologic/Lymphatic: Reports system reviewed and no additional complaints, except as documented Allergic/Immunologic Allergic/Immunologic: Reports system reviewed and no additional complaints, except as documented Meds Home Medications and Allergies Home Medications ?Medication ?Instructions ?Recorded ?Confirmed ?Type No Known Home Medications 09/29/23 09/29/23 History New Prescriptions to Start Prescriptions: Allergies Allergy/AdvReac Type Severity Reaction Status Date / Time No Known Allergies Allergy Verified 09/28/23 22:25 Exam (Inpt) Vital signs and Labs for Last 24 Hours: Temp Pulse Resp BP Pulse Ox O2 Del Method 98.1 F 120 H 16 118/70 98 Room Air 09/30/23 07:55 09/30/23 08:00 09/30/23 07:55 09/30/23 07:55 09/30/23 07:55 09/30/23 11:00 Laboratory Results - last 24 hr 09/29/23 05:19: Transferrin 301 09/30/23 07:19: WBC 3.2 L, RBC 3.18 L, Hgb 8.8 L, Hct 28.8 L, MCV 90.5, MCH 27.5, MCHC 30.4 L, RDW 24.6 H, Plt Count 131 L, MPV 9.4, Neut % (Auto) 50.1, Lymph % (Auto) 39.7, [place] % (Auto) 7.5, Eos % (Auto) 2.1, Baso % (Auto) 0.7, N eut # (Auto) 1.6 L, Lymph # (Auto) 1.3, [place] # (Auto) 0.2, Eos # (Auto) 0.1, Baso # (Auto) 0.0, Sodium 135 L, Potassium 3.4 L, Chloride 108 H, Carbon Dioxide 22, Anion Gap 8.4, BUN 12 D, Creatinine 0.50 L, Estimated Creat Clear 182, Estimated GFR 126, Est GFR ( Amer) 152, Glucose 102 H, Calcium 8.2 L, Magnesium 1.7 I & O for Labs for Last 24 Hours: Intake & Output 09/27/23 09/28/23 09/29/23 09/30/23 23:59 23:59 23:59 23:59 Intake Total 810 / 1068 558 / 558 Output Total 0 / 0 Balance 810 / 1068 557 / 557 Weight 215 lb 12.8 oz 215 lb 12.792 oz 212 lb 6 oz Constitutional: no acute distress and chronically ill appearing Head: Present normocephalic, atraumatic and other (Edentulous) ENT exam ED: Present normal oropharynx and mucous membranes moist Neck: Present normal inspection and trachea midline Respiratory: Absent accessory muscle use Cardiac: Present Reg Rate and Rhythm GI: Present soft and normal bowel sounds; Absent distention, tenderness, guarding, rebound or rigidity Comments:: Upper midline incision Rectal (female): Present deferred (female): Present deferred Extremities: Present normal inspection; Absent tenderness or edema Skin: Present intact and dry; Absent cyanosis or erythema Neuro: Present Cranial Nerve 2-12 Intact Results Labs 09/30/23 07:19 09/30/23 07:19 Labs: Laboratory Results - last 24 hr 09/29/23 05:19: Transferrin 301 09/30/23 07:19: WBC 3.2 L, RBC 3.18 L, Hgb 8.8 L, Hct 28.8 L, MCV 90.5, MCH 27.5, MCHC 30.4 L, RDW 24.6 H, Plt Count 131 L, MPV 9.4, Neut % (Auto) 50.1, Lymph % (Auto) 39.7, [place] % (Auto) 7.5, Eos % (Auto) 2.1, Baso % (Auto) 0.7, N eut # (Auto) 1.6 L, Lymph # (Auto) 1.3, [place] # (Auto) 0.2, Eos # (Auto) 0.1, Baso # (Auto) 0.0, Sodium 135 L, Potassium 3.4 L, Chloride 108 H, Carbon Dioxide 22, Anion Gap 8.4, BUN 12 D, Creatinine 0.50 L, Estimated Creat Clear 182, Estimated GFR 126, Est GFR ( Amer) 152, Glucose 102 H, Calcium 8.2 L, Magnesium 1.7 Assessment and Plan *Assessment and plan (1) History of gastric bypass: Status: Acute Category: Surgical Code(s): Z98.84 - Bariatric surgery status Plan: Will order maintenance vitamins, to include daily multivitamin, B12 1000 mcg sublingual, 100 mg B1 IV for now, vitamin D 5000 IUs, 65 mg elemental iron, vitamin C 500 mg, calcium 1200 mg. Will run rally bag now. She unfortunately has had almost no follow-up for her gastric bypass, and appears to have many chronic findings that would be expected with this, including but not limited to weakness, falls, and iron deficiency anemia. We had a long discussion about her smoking, which is a major risk factor for marginal gastrojejunostomy ulceration. This may very well explain her melena. She states that this time she is not amenable to quit smoking. We discussed smoking cessation on a very slow wean. She was educated that ulcerogenics such as aspirin, NSAIDs, steroids, and tobacco/nicotine are famous for causing marginal ulcers after gastric bypass, which can have life-threatening complications of bleeding, perforation, chronic pain, fistulization, peritonitis. I asked her to think about the risk and benefits, and reconsider smoking cessation in the future. Continue PPI, will make twice daily CORDELL understand she will need antiplatelet since she has had a heart attack. The benefits to her heart must be weighed against the risk to her gastric bypass. Hopefully PPI will be able to protect her from perpetuating her ulcer while on antiplatelet. When she is stable from her NSTEMI, and able to complete a bowel prep, will need EGD and colonoscopy in the early week. (2) Alcoholism: Status: Acute Category: Medical Code(s): F10.20 - Alcohol dependence, uncomplicated (3) Generalized weakness: Status: Acute Category: Medical Code(s): R53.1 - Weakness (4) NSTEMI (non-ST elevated myocardial infarction): Status: Acute Category: Medical Code(s): I21.4 - Non-ST elevation (NSTEMI) myocardial infarction (5) Iron deficiency anemia: Status: Acute Qualifiers: Iron deficiency anemia type: inadequate dietary iron intake Qualified Code(s): D50.8 - Other iron deficiency anemias Category: Medical Code(s): D50.9 - Iron deficiency anemia, unspecified (6) Melena: Status: Acute Category: Medical Code(s): K92.1 - Melena
[2023-09-30] MEDS: MVI, ADULT NO.1 WITH VIT K 10 ML, THIAMINE HCL 100 MG, MAGNESIUM SULFATE 2 GM in LACTAT... 125 ML IV (12:39)
[2023-09-30] MEDS: VITAMIN B-12 1,000 MCG 1ML VIAL 1000 MCG IM (12:42)
--- NOTE | 2023-09-30 16:19 | EXP.PN ---
Subjective *Date: 09/30/23 *Time: 16:19 Interval history: seen at bedside, no acute events overnight, no complains of melena, no fevers, alert awake holding conversations Exam Data for Last 24 hours Vital signs and Labs for Last 24 Hours: Temp Pulse Resp BP Pulse Ox O2 Del Method 97.8 F 92 H 18 119/77 99 Room Air 09/30/23 12:00 09/30/23 12:00 09/30/23 12:00 09/30/23 12:00 09/30/23 12:00 09/30/23 13:00 Laboratory Results - last 24 hr 09/29/23 05:19: Transferrin 301 09/30/23 07:19: WBC 3.2 L, RBC 3.18 L, Hgb 8.8 L, Hct 28.8 L, MCV 90.5, MCH 27.5, MCHC 30.4 L, RDW 24.6 H, Plt Count 131 L, MPV 9.4, Neut % (Auto) 50.1, Lymph % (Auto) 39.7, [place] % (Auto) 7.5, Eos % (Auto) 2.1, Baso % (Auto) 0.7, Neut # (Auto) 1.6 L, Lymph # (Auto) 1.3, [place] # (Auto) 0.2, Eos # (Auto) 0.1, Baso # (Auto) 0.0, Sodium 135 L, Potassium 3.4 L, Chloride 108 H, Carbon Dioxide 22, Anion Gap 8.4, BUN 12 D, Creatinine 0.50 L, Estimated Creat Clear 182, Estimated GFR 126, Est GFR ( Amer) 152, Glucose 102 H, Calcium 8.2 L, Magnesium 1.7 I & O for Last 24 hours: Intake & Output 09/27/23 09/28/23 09/29/23 09/30/23 23:59 23:59 23:59 23:59 Intake Total 810 / 1068 558 / 558 Output Total 0 / 0 301 / 301 Balance 810 / 1068 257 / 257 Weight 97.885 kg 97.885 kg 96.332 kg Constitutional Constitutional: no acute distress *Routine HEENT Exam Head: Present normocephalic Eye: Present EOMI and PERRL ENT: Present mucous membranes moist *Routine Neck Exam Neck: Present supple; Absent lymphadenopathy *Routine Respiratory Exam Respiratory: Present CTA bilaterally *Routine Cardiovascular Exam Cardiovascular: Present RRR *Routine Abdominal Exam Abdominal: Present soft and normoactive bowel sounds; Absent tenderness *Routine Extremities Exam Extremities: Absent cyanosis, clubbing or edema *Routine Skin Exam Skin: Present warm; Absent rash *Routine Neurological Exam Neurological: Present alert and oriented X3 Assessment and Plan *Assessment and plan (1) Iron deficiency: Status: Acute Category: Medical Code(s): E61.1 - Iron deficiency (2) Medical non-compliance: Status: Acute Category: Medical Code(s): Z91.199 - Patient's noncompliance with other medical treatment and regimen due to unspecified reason (3) Alcoholism: Status: Acute Category: Medical Code(s): F10.20 - Alcohol dependence, uncomplicated (4) Generalized weakness: Status: Acute Category: Medical Code(s): R53.1 - Weakness (5) NSTEMI (non-ST elevated myocardial infarction): Status: Acute Category: Medical Code(s): I21.4 - Non-ST elevation (NSTEMI) myocardial infarction Plan 58-year-old female patient with past medical history of iron deficiency anemia, medical noncompliance, CHF, CVA, heavy alcohol ingestion, gastric bypass. Patient presents with elevated high-sensitivity troponin from outside hospital, and currently be evaluated for non-STEMI. Cardiology consultation in progress. #NSTEMI ?09/28 appreciate cardiology assistance. Patient currently receiving anemia workup before initiation of possible dual antiplatelet therapy. Continue aspirin. Echocardiogram scheduled for today. Cardiology consultation - recommended ASA , no plan for cardiac cath during this hospitalization As needed nitro chest pain. Iron deficiency anemia: ? patient has low iron stores. - s/p 200 mg Venofer today. Will also consult general surgery to determine if patient appropriate for colonoscopy. - no plan for colonoscopy per GS - reviewed B12/folate levels which appear normal. However, given patient's history of alcohol heavy ingestion will start daily B12/folate supplementation. #Medical noncompliance Reports that she does not take any medicines because she refused to take them after her stroke. Does not have any close follow-up, states that she does not have a PCP #Alcoholism #Transaminitis Reports 6-8 beers daily for the last 40 years as well as some whiskey intake intermittently Will schedule Serax and gabapentin to attempt to avoid withdrawal CIWA protocol with multivitamins and Ativan #History of CVA No residual deficits at this time except for mild speech impediment #Generalized weakness ?09/28 consult PT/OT for evaluation during hospitalization. Has good strength bilaterally with plantar and dorsi flexion and hip flexion Reports that she can walk but is too weak to walk very far Lumbar CT performed at outside hospital, no signs of cauda equina Obtain urinalysis to rule out infection as source of generalized weakness #Obesity Complicates all aspects of care Disposition: ? Will continue anemia workup, no plan for colonoscpy or cardiac cath until now
[2023-09-30] MEDS: CALCIUM CARB + VIT D 500MG TAB 1000 MG PO (17:29)
[2023-09-30] MEDS: MULTIVITAMIN TABLET 1 EACH PO (17:29)
[2023-09-30] MEDS: PANTOPRAZOLE 40MG TABLET 40 MG PO (21:11)
[2023-09-30] MEDS: ATORVASTATIN 40MG TABLET 40 MG PO (21:11)
[2023-10-01] VITALS: BP 126/84; PULSE 101; PULSE 82; RESP 16; TEMP 36.9; O2SAT 96
[2023-10-01 04:00] VITALS: BP 96/54; PULSE 80; RESP 16; TEMP 37; O2SAT 98; BMI 36.9
--- NOTE | 2023-10-01 04:08 | PC.NURSE ---
Pt is A/O X 3 however at times she seems as though she does not understand instructions. She has denied pain or discomfort throughout shift and has been in bed through the night. She has been incont of both bowel and bladder. Pt has not shown any signs of alcohol withdraw this shift. Unable to obtain urine for UA due to urinary incont through shift.
[2023-10-01 07:22] LABS: Basophils % 0.4 % (0.1-2.0); Eosinophils # 0.1 K/mm3 (0.0-0.4); Eosinophils % 1.5 % (0.1-12.0); Hematocrit 24.2 % (37.0-47.0); Lymphocytes # 1.3 K/mm3 (0.7-4.5); Lymphocytes % 39.5 % (10-50); Mean Corpuscular HGB Conc 30.8 g/dL (31.8-35.4); Mean Corpuscular Volume 90.8 fl (81-99); Mean Platelet Volume 8.9 fl (7.4-10.4); Monocytes # 0.2 K/mm3 (0.1-1.0); Monocytes % 6.1 % (1.7-9.3); Neutrophils # 1.7 K/mm3 (1.8-7.8); Neutrophils % 52.4 % (37.0-80.0); Platelet Count 115 K/mm3 (142-424); Red Blood Count 2.67 M/mm3 (4.20-5.40); White Blood Count 3.2 K/mm3 (4.8-10.8)
[2023-10-01 07:25] LABS: Chloride 110 mmol/L (98-107)
[2023-10-01 07:26] LABS: Potassium 3.5 mmoL/L (3.5-5.1); Red Cell Distribution Width 25.1 % (11.5-17.5); Sodium 133 mmol/L (136-145)
[2023-10-01 07:29] LABS: Anion Gap 3.5 mEq/L (5-15); Blood Urea Nitrogen 11 mg/dl (7-17); Calcium 7.3 mg/dl (8.4-10.2); Carbon Dioxide 23 mmol/L (22.0-30.0); Creatinine Clearance Estimated 237 mL/min (50-200); Estimated Glomerular Filt Rate 163 ml/min (>60); GFR (African American) 197 ML/MIN (>60); Glucose 92 mg/dl (74-100); Magnesium 1.9 mg/dl (1.6-2.3)
[2023-10-01 07:34] LABS: Hemoglobin 7.5 g/dL (12.2-16.2)
[2023-10-01 08:00] VITALS: BP 133/81; PULSE 122; PULSE 125; PULSE 90; RESP 19; RESP 20; TEMP 36.8; O2SAT 100; O2SAT 97
[2023-10-01] MEDS: OXAZEPAM 10 MG CAPSULE PO (08:44)
[2023-10-01] MEDS: ASPIRIN 81MG CHEWABLE TABLET 81 MG PO (08:44)
[2023-10-01] MEDS: ENOXAPARIN 40MG/0.4ML SYRINGE 40 MG SQ (08:44)
[2023-10-01] MEDS: THIAMINE 100MG TABLET 100 MG PO (08:44)
[2023-10-01] MEDS: GABAPENTIN 100MG CAPSULE 200 MG PO (08:44)
[2023-10-01] MEDS: ERGOCALCIFEROL 50,000 UNITS (1.25MG) CAPSULE 50000 UNIT PO (08:44)
[2023-10-01] MEDS: ASCORBIC ACID 500MG TAB 500 MG PO (08:44)
[2023-10-01] MEDS: FOLIC ACID 1MG TABLET 1 MG PO (08:44)
[2023-10-01] MEDS: FERROUS SULFATE 325MG TABLET 325 MG PO (08:44)
[2023-10-01] MEDS: MVI, ADULT NO.1 WITH VIT K 10 ML, THIAMINE HCL 100 MG, MAGNESIUM SULFATE 2 GM in LACTAT... 125 ML IV (09:00)
[2023-10-01 09:03] LABS: Microscopic, Urine URINE MICROSCOPIC (MICROSCOPIC)
[2023-10-01 09:06] LABS: Appearance,Urine SL CLOUDY (Clear); Bilirubin,Urine Negative (Negative); Blood, Urine Negative (Negative); Color,Urine YELLOW (Yellow); Glucose,Urine (UA) Negative (Negative); Ketones,Urine Negative (Negative); Leukocyte Esterase,Urine Negative (Negative); Nitrate,Urine POSITIVE (Negative); Protein,Urine Negative (Negative)
[2023-10-01 09:18] LABS: Bacteria,Urine 4+ /lpf
[2023-10-01 12:00] VITALS: BP 122/79; PULSE 101; RESP 19; TEMP 37.1; O2SAT 96
--- NOTE | 2023-10-01 15:21 | P.DS_ITS ---
General Admission date:: 10/01/23 Discharge date: 10/01/23 HPI HPI HPI: Ms. Nela Munoz is a 58-year-old female with history of alcoholism and prior CVA, noted as medically noncompliant, transferred from [facility] on 09/28/2023 for evaluation of NSTEMI. She complains of generalized weakness and inability to walk due to being too weak to stand. She has fallen twice. She has heavy alcohol intake, and stated to the hospitalist service that she is not willing to quit drinking. Patient was evaluated by cardiology for possible NSTEMi, patient was recommended to be started on ASA and statin and follow up as OP, patient was also treated for alcohol abuse and started on MV, B1 and folate. She was noticed to have anemia and was started on iron supplementation, patient was given referrral to cardiology and medications werre sent to outside pharmacy Hospital Course Hospital Course Hospital Course: Ms. Nela Munoz is a 58-year-old female with history of alcoholism and prior CVA, noted as medically noncompliant, transferred from [facility] on 09/28/2023 for evaluation of NSTEMI. She complains of generalized weakness and inability to walk due to being too weak to stand. She has fallen twice. She has heavy alcohol intake, and stated to the hospitalist service that she is not willing to quit drinking. Patient was evaluated by cardiology for possible NSTEMi, patient was recommended to be started on ASA and statin and follow up as OP, patient was also treated for alcohol abuse and started on MV, B1 and folate. She was noticed to have anemia and was started on iron supplementation, patient was given referrral to cardiology and medications werre sent to outside pharmacy Exam Data for Last 24 hours Vital signs and Labs for Last 24 Hours: Temp Pulse Resp BP Pulse Ox O2 Del Method 98.7 F 101 H 19 122/79 96 Room Air 10/01/23 12:00 10/01/23 12:00 10/01/23 12:00 10/01/23 12:00 10/01/23 12:00 10/01/23 13:00 Laboratory Results - last 24 hr 10/01/23 06:50: WBC 3.2 L, RBC 2.67 L, Hgb 7.5 L D, Hct 24.2 L, MCV 90.8, MCH 28.0, MCHC 30.8 L, RDW 25.1 H*, Plt Count 115 L, MPV 8.9, Neut % (Auto) 52.4, Lymph % (Auto) 39.5, [place] % (Auto) 6.1, Eos % (Auto) 1.5, Baso % (Auto) 0.4, Neut # (Auto) 1.7 L, Lymph # (Auto) 1.3, [place] # (Auto) 0.2, Eos # (Auto) 0.1, Baso # (Auto) 0.0, Sodium 133 L, Potassium 3.5, Chloride 110 H, Carbon Dioxide 23, Anion Gap 3.5 L, BUN 11, Creatinine 0.40 L, Estimated Creat Clear 237, Estimated GFR 163, Est GFR ( Amer) 197 D, Glucose 92, Calcium 7.3 L, Magnesium 1.9 D 10/01/23 08:50: Urine Color Yellow, Urine Appearance Sl cloudy, Urine pH 7.0, Ur Specific [place] 1.010, Urine Protein Negative, Urine Glucose (UA) Negative, Urine Ketones Negative, Urine Blood Negative, Urine Nitrate Positive, Urine B ilirubin Negative, Urine Urobilinogen 4.0, Ur Leukocyte Esterase Negative, Urine RBC None, Urine WBC None, Ur Squamous Epith Cells None, Urine Bacteria 4+ I & O for Last 24 hours: Intake & Output 09/28/23 09/29/23 09/30/23 10/01/23 23:59 23:59 23:59 23:59 Intake Total 810 / 1068 1268 / 1518 790 / 790 Output Total 0 / 0 301 / 301 0 / 0 Balance 810 / 1068 967 / 1217 790 / 790 Weight 97.885 kg 97.885 kg 96.332 kg 100.516 kg Constitutional Constitutional: no acute distress *Routine HEENT Exam Head: Present normocephalic Eye: Present EOMI and PERRL ENT: Present mucous membranes moist *Routine Neck Exam Neck: Present supple; Absent lymphadenopathy *Routine Respiratory Exam Respiratory: Present CTA bilaterally *Routine Cardiovascular Exam Cardiovascular: Present RRR *Routine Abdominal Exam Abdominal: Present soft and normoactive bowel sounds; Absent tenderness *Routine Extremities Exam Extremities: Absent cyanosis, clubbing or edema *Routine Skin Exam Skin: Present warm; Absent rash *Routine Neurological Exam Neurological: Present alert and oriented X3 Results Data Completed and Pending Labs on day of discharge: Labs from last 24 hours 10/01/23 10/01/23 08:50 06:50 WBC 3.2 L RBC 2.67 L Hgb 7.5 L D Hct 24.2 L MCV 90.8 MCH 28.0 MCHC 30.8 L RDW 25.1 H* Plt Count 115 L MPV 8.9 Neut % (Auto) 52.4 Lymph % (Auto) 39.5 [place] % (Auto) 6.1 Eos % (Auto) 1.5 Baso % (Auto) 0.4 Neut # (Auto) 1.7 L Lymph # (Auto) 1.3 [place] # (Auto) 0.2 Eos # (Auto) 0.1 Baso # (Auto) 0.0 Sodium 133 L Potassium 3.5 Chloride 110 H Carbon Dioxide 23 Anion Gap 3.5 L BUN 11 Creatinine 0.40 L Estimated Creat Clear 237 Estimated GFR 163 Est GFR ( Amer) 197 D Glucose 92 Calcium 7.3 L Magnesium 1.9 D Urine Color Yellow Urine Appearance Sl cloudy Urine pH 7.0 Ur Specific [place] 1.010 Urine Protein Negative Urine Glucose (UA) Negative Urine Ketones Negative Urine Blood Negative Urine Nitrate Positive Urine Bilirubin Negative Urine Urobilinogen 4.0 Ur Leukocyte Esterase Negative Urine RBC None Urine WBC None Ur Squamous Epith Cells None Urine Bacteria 4+ DS: Diagnosis Discharge Diagnosis (1) Iron deficiency: Status: Acute Code(s): E61.1 - Iron deficiency (2) Medical non-compliance: Status: Acute Code(s): Z91.199 - Patient's noncompliance with other medical treatment and regimen due to unspecified reason (3) Alcoholism: Status: Acute Code(s): F10.20 - Alcohol dependence, uncomplicated (4) Generalized weakness: Status: Acute Code(s): R53.1 - Weakness (5) NSTEMI (non-ST elevated myocardial infarction): Status: Acute Code(s): I21.4 - Non-ST elevation (NSTEMI) myocardial infarction Meds Home Medications and Allergies Home Medications ?Medication ?Instructions ?Recorded ?Confirmed ?Type ascorbic acid (vitamin C) 500 mg 500 mg PO DAILY 14 days #14 tabs 10/01/23 Rx tablet (Vitamin C) aspirin 81 mg chewable tablet 81 mg PO DAILY 14 days #14 tabs 10/01/23 Rx atorvastatin 40 mg tablet 40 mg PO HS 14 days #14 tabs 10/01/23 Rx ferrous sulfate 325 mg (65 mg 325 mg PO DAILY 30 days #30 tabs 10/01/23 Rx iron) tablet folic acid 1 mg tablet 1 mg PO DAILY 30 days #30 tabs 10/01/23 Rx multivitamin with folic acid 400 1 tab PO 1700 30 days #30 tabs 10/01/23 Rx mcg tablet (Tab-A-Joan) pantoprazole 40 mg tablet,delayed 40 mg PO HS 30 days #30 tabs 10/01/23 Rx release thiamine mononitrate (vit B1) 100 100 mg PO DAILY 30 days #30 tabs 10/01/23 Rx mg tablet New Prescriptions to Start Prescriptions: ascorbic acid (vitamin C) [Vitamin C] Martin,[place] aspirin [facility],[place] [facility]atin [facility] f[facility] multivitamin with folic acid [Tab-A-Joan] [facility] pantoprazole [facility] thiamine mononitrate (vit B1) [facility] Allergies Allergy/AdvReac Type Severity Reaction Status Date / Time No Known Allergies Allergy Verified 09/28/23 22:25 Discharge Plan Disposition Patient Disposition: Home Health Service Condition: Good Discharge Order Discharge Orders: Discharge Order (Routine); Ordered 10/01/23 Ordered By: Mariposa Salazar Follow up Plan Follow up with: Kira Gaines APRN [Nurse Practitioner] - 10/05/23 11:00 am Prescriptions/Medication Reconciliation: New atorvastatin 40 mg Tablet 40 mg PO HS 14 Days Qty: 14 0RF ascorbic acid (vitamin C) [Vitamin C] 500 mg Tablet 500 mg PO DAILY 14 Days Qty: 14 0RF pantoprazole 40 mg Tablet,Delayed Release (Dr/Ec) 40 mg PO HS 30 Days Qty: 30 0RF ferrous sulfate 325 mg (65 mg iron) Tablet 325 mg PO DAILY 30 Days Qty: 30 0RF aspirin 81 mg Tablet,Chewable 81 mg PO DAILY 14 Days Qty: 14 0RF folic acid 1 mg Tablet 1 mg PO DAILY 30 Days Qty: 30 0RF thiamine mononitrate (vit B1) 100 mg Tablet 100 mg PO DAILY 30 Days Qty: 30 0RF multivitamin with folic acid [Tab-A-Joan] 400 mcg Tablet 1 tab PO 1700 30 Days Qty: 30 0RF Problem Reconciliation Problems Reviewed?: Yes Patient Discharge Instructions ACTIVITY: Ambulate as tolerated Patient Instructions: DI for Heart Attack, DI for Heart Failure Print Language: Ecuadorean Providers Primary Care Provider: Provider,Referral Admit Provider: Dk Lawrence Attending Provider: Dk Lawrence
--- NOTE | 2023-10-03 12:55 | CARE MANAGER ---
Addendum entered by Gracie Tsang 10/03/23 13:18: Home health services were not set up due to no answer. Original Note: Attempted to contact patient related to hospital discharge x2. Left VM message. CARIE Greer
== END 2023-10-01 13:59 | disposition home health service (06) | DRG 280 ==
PROVIDERS: Nurse Practitioner Acute Care; Nurse Practitioner Family; Admitting Provider Internal Medicine; Visit Provider Internal Medicine
DX: I21.4 Non-ST elevation (NSTEMI) myocardial infarction (principal); I50.33 Acute on chronic diastolic (congestive) heart failure; D50.8 Other iron deficiency anemias; F10.20 Alcohol dependence, uncomplicated; R74.01 Elevation of levels of liver transaminase levels; E66.09 Other obesity due to excess calories; Z68.36 Body mass index [BMI] 36.0-36.9, adult; Z91.199 Patient's noncompliance with other medical treatment and regimen due to unspecified reason; R00.0 Tachycardia, unspecified; Z98.84 Bariatric surgery status; E66.9 Obesity, unspecified; R29.6 Repeated falls; F17.210 Nicotine dependence, cigarettes, uncomplicated; I69.328 Other speech and language deficits following cerebral infarction; T50.906A Underdosing of unspecified drugs, medicaments and biological substances, initial encounter; Z91.128 Patient's intentional underdosing of medication regimen for other reason
CPT/HCPCS: G0379; 36415; 71045; 80048; 80053; 80061; 81001; 82607; 82728; 82746; 83036; 83540; 83550; 83735; 83880; 84466; 84484; 85025; 85044; 85610; 85730; 87086; 87088; 87186; 93005; 93306; 97110; 97162; 97165; 97530; G0378; J1650; J1756; J3411; J3420; J7030; J7120